=== PATIENT | male | born 1980 | race Caucasian/White ===

== ENCOUNTER 2019-04-23 15:37 | Day surgery (SDC) | payer BC ==
[2019-04-23] MEDS ORDERED: LIDOCAINE 1% (MPF) 30 ML INJ (16:15)
[2019-04-23] MEDS ORDERED: FENTAnyl 50 MCG/ML VIAL (16:55)
[2019-04-23] MEDS ORDERED: MIDAZOLAM 1 MG/ML 2 ML INJ (16:55)
[2019-04-23] MEDS ORDERED: ONDANSETRON 4 MG INJ (18:41)
[2019-04-23] MEDS ORDERED: LIDOCAINE 2% (SDV) 5 ML INJ (18:41)
[2019-04-23] MEDS ORDERED: PROPOFOL 40 ML (18:41)
[2019-04-23] MEDS ORDERED: CEFAZOLIN 1 GM INJ (18:42)
[2019-04-23] MEDS ORDERED: ONDANSETRON 4 MG INJ IV (19:30)
[2019-04-23] MEDS ORDERED: IBUPROFEN 600 MG TAB PO (19:30)
[2019-04-23] MEDS ORDERED: OXYCODONE/ACETAMINOPHEN (5/325) TAB PO (19:30)
== END 2019-04-23 19:40 | disposition home or self-care (01) ==
LOC: SDS 15:37
DX: L97.511 Non-pressure chronic ulcer of other part of right foot limited to breakdown of skin (principal); Q05.9 Spina bifida, unspecified; M20.41 Other hammer toe(s) (acquired), right foot
CPT/HCPCS: 11042; 87070; 87075; 87102; 87116

== ENCOUNTER 2019-05-17 12:47 | Emergency (ER) | payer BC ==
[2019-05-17 15:10] LABS: ADD MAN DIFF? NO
[2019-05-17] MEDS: ACETAMINOPHEN 325 MG TAB PO (15:19)
[2019-05-17] MEDS: SOD CHLORIDE 0.9% 1,000 ML IV ×2 (15:19→17:11)
[2019-05-17 15:28] LABS: ANION GAP 13 (5-13); BLOOD UREA NITROGEN 14 mg/dl (7-20); CALCIUM 9.5 mg/dl (8.4-10.2); CARBON DIOXIDE 23 mmol/L (21-31); CHLORIDE 103 mmol/L (97-110); CREATININE 0.91 mg/dl (0.61-1.24); Estimated GFR > 60 mL/min (>60); GLUCOSE 115 mg/dl (70-220); SODIUM 139 mmol/L (135-144)
[2019-05-17 15:29] LABS: POTASSIUM 4.3 mmol/L (3.5-5.1)
[2019-05-17 15:31] LABS: WHITE BLOOD COUNT 14.5 10^3/ul (4.8-10.8)
[2019-05-17 15:31] LABS: BASOPHILS % 0.2 % (0.0-2.0); EOSINOPHILS % 0.1 % (0.0-7.0); HEMATOCRIT 42.4 % (42.0-52.0); HEMOGLOBIN 14.7 g/dl (14.0-18.0); LYMPHOCYTES # 0.9 10^3/ul (0.8-2.9); LYMPHOCYTES % 6.3 % (15.0-51.0); MEAN CORPUSCULAR HEMOGLOBIN 29.6 pg (29.0-33.0); MEAN CORPUSCULAR HGB CONC 34.7 g/dl (32.0-37.0); MEAN CORPUSCULAR VOLUME 85.3 fl (82.0-101.0); NEUTROPHIL # 12.4 10^3/ul (1.6-7.5); NEUTROPHILS % 85.8 % (39.0-77.0); PLATELET COUNT 179 10^3/UL (140-415); RED BLOOD COUNT 4.97 10^6/ul (4.70-6.10); RED CELL DISTRIBUTION WIDTH 12.2 % (11.5-14.5)
[2019-05-17 15:33] LABS: D-DIMER 328.51 ng/ml (<460)
[2019-05-17 15:38] LABS: AMPHETAMINE/METHAMPHETAMINE Negative (NEGATIVE); BARBITURATES Negative (NEGATIVE); BENZODIAZEPINES Negative (NEGATIVE); CANNABINOIDS Negative (NEGATIVE); COCAINE Negative (NEGATIVE); OPIATES Negative (NEGATIVE)
[2019-05-17 15:40] LABS: TROPONIN-I < 0.012 ng/ml (0.000-0.120)
[2019-05-17 16:14] LABS: ADD UMIC YES; UR ASCORBIC ACID NEGATIVE (NEGATIVE); UR BACTERIA FEW /HPF (NONE SEEN); UR BILIRUBIN (Dip) NEGATIVE (NEGATIVE); UR BLOOD (Dip) 2+ mg/dL (NEGATIVE); UR CLARITY SLIGHTLY CLOUDY (CLEAR); UR COLOR YELLOW (YELLOW); UR GLUCOSE (Dip) NEGATIVE (NEGATIVE); UR KETONES (Dip) 1+ mg/dL (NEGATIVE); UR LEUKOCYTE ESTERASE (Dip) 1+ Leu/ul (NEGATIVE); UR MUCUS MODERATE /HPF (NONE SEEN); UR NITRITE (Dip) NEGATIVE (NEGATIVE); UR RBC 17 /HPF (0-5); UR SPECIFIC GRAVITY (Dip) 1.025 (1.003-1.030); UR TOTAL PROTEIN (Dip) NEGATIVE (NEGATIVE); UR UROBILINOGEN (Dip) NEGATIVE (NEGATIVE); UR WBC 44 /HPF (0-5)
[2019-05-17] MEDS: CEFTRIAXONE 1 GM/50 ML (PMX) 50 ML IVPB (17:11)
== END 2019-05-17 19:44 | disposition home or self-care (01) ==
LOC: E/R 12:47
DX: N39.0 Urinary tract infection, site not specified (principal); E86.0 Dehydration
CPT/HCPCS: 36415; 71045; 80048; 80307; 81001; 84484; 85025; 85378; 87086; 93005; 96374; 99285-25